=== PATIENT | female | born 1970 | race Two or more races ===

== ENCOUNTER 2021-02-05 16:39 | Emergency (ER) | payer OTHER, SELFPAY ==
[2021-02-05 17:06] VITALS: BP 116/74; BP 130/71; PULSE 106; PULSE 170; RESP 17; TEMP 36.8; O2SAT 96; O2SAT 97; BMI 49.0
--- NOTE | 2021-02-05 17:11 | PC.NURSE ---
patient a&ox3, denies pain/discomfort at this time, air sampling and monitoring sinus tach low 100s, vitals otherwise stable, will continue to monitor.
--- NOTE | 2021-02-05 17:28 | ED_ITS ---
HPI - Arrhythmia/Palpitations General Chief Complaint: Arrhythmia/Palpitations Stated Complaint: Tachycardia Time Seen by Provider: 02/05/21 17:27 Source: patient Mode of arrival: EMS Limitations: no limitations History of Present Illness HPI narrative: Patient with no prior cardiac history was driving from work fernanda und 13:00 noticed heart rate was beating fast went to the walk-in clinic with SVT was noticed, with heart rate of 169 beats per minute, EMT came and gave 6 mg of Adenocard now patient is back to normal heart rate in 100s sinus. Patient denies any chest pain no thyroid problem no history of recent increased caffeine intake MD complaint: rapid heart beat Onset (ago): minute(s) Duration: constant Severity: moderate Context: occurred during rest Related Data Home Medications Medication Instructions Recorded Confirmed cetirizine 10 mg tablet 10 mg PO DAILY 02/05/21 02/05/21 chlorthalidone 25 mg tablet 25 mg PO DAILY 02/05/21 02/05/21 fluticasone propionate 50 1 spray INTRANASAL BID 02/05/21 02/05/21 mcg/actuation nasal spray,suspension hydrocortisone 2.5 % topical TOPICAL 02/05/21 02/05/21 ointment ketotifen fumarate 0.025 % (0.035 drp OPHTHALMIC (EYE) 02/05/21 02/05/21 %) eye drops lisinopril 40 mg tablet 40 mg PO DAILY 02/05/21 02/05/21 omeprazole 20 mg capsule,delayed 20 mg PO DAILY 02/05/21 02/05/21 release Allergies Allergy/AdvReac Type Severity Reaction Status Date / Time No Known Allergies Allergy Verified 02/05/21 16:02 [No Known Allergies*] Review of Systems Review of Systems: Constitutional : No Weight loss, No Fever, No Chills ENT/Mouth : No sore throat, No Rhinorrhea Eyes: No Eye Pain, No Swelling Cardiovascular : No Chest Pain, ++ palpitations Respiratory : No Cough, No Sputum, no shortness of breath Gastrointestinal : no Nausea, No Vomiting, No Diarrhea, No abdominal Pain, no black stools Genitourinary : No Dysuria, No Urinary Frequency Musculoskeletal : No joint pain, No Myalgias, No Joint Swelling Skin : No Skin Lesions, No rash Neuro : No Weakness, No Numbness, No Dizziness, No Headache Psych : No Anxiety/Panic, No Depression Heme/Lymph: No Bruising, No Lymphadenopathy Endocrine : No Polyuria, No Polydipsia All other systems reviewed and are negative [facility] Past Medical History Medical History GERD (gastroesophageal reflux disease) HTN (hypertension) Social History Social History Alcohol intake: never Smoked in Last 30 Days: No Use of substances other than those prescribed or required for medical reasons: No Advance Directives: No Advance Directives Information Provided: Yes Physical Exam Vital Signs: Vital Signs: Last Vital Signs Temp 98.2 F 02/05/21 19:35 Pulse 91 02/05/21 19:35 Resp 18 02/05/21 19:35 BP 106/73 02/05/21 19:35 Pulse Ox 97 02/05/21 19:35 Body Mass Index 49.0 Appearance: Alert. Oriented X3. No acute distress. Eyes: Pupils equal, round and reactive to light. ENT: Pharynx normal. Neck: Normal inspection. Neck supple. CVS: Normal heart rate and rhythm. Pulses normal. Respiratory: No respiratory distress. Breath sounds normal. Abdomen: Soft and nontender. Bowel sounds are present, no mass palpable, no CVA tenderness Skin: Skin warm and dry. Normal skin color. Normal skin turgor. Extremities: No lower extremity edema. Neuro: Oriented X 3. No motor deficit. No sensory deficit. MDM - Arrhythmia/Palpitations MDM Narrative Medical decision making narrative: Above EKGs from walk-in clinic. During stay in the ER patient remained in sinus rhythm without any symptoms blood workup is stable will discharge patient home Lab Data Attestation: I reviewed the patient's lab results. Result diagrams: 02/05/21 17:59 02/05/21 17:59 Labs: Lab Results 02/05/21 02/05/21 02/05/21 Range/Units 17:59 17:59 17:59 WBC 6.1 (4.8-10.8) X10*3/uL RBC 4.78 (4.20-5.50) X10*6/uL Hgb 14.3 (12.0-16.0) g/dl Hct 42.1 (37-47) % MCV 88.1 (80-98) fL MCH 29.9 (27.0-33.0) pg MCHC 34.0 (31.0-35.0) g/dl RDW 12.2 (11.0-16.0) % Plt Count 219 (160-400) X10*3/uL MPV 9.5 (9.4-12.3) fL Immature Gran % (Auto) 0.2 (0.0-0.4) % Neut % (Auto) 59.1 (45-73) % Lymph % (Auto) 31.0 (20-40) % [place] % (Auto) 7.9 (2-11) % Eos % (Auto) 1.5 (0-4) % Baso % (Auto) 0.3 (0-2) % Lymph # (Auto) 1.9 (1.2-4.9) X10*3/uL [place] # (Auto) 0.5 (0.1-1.2) X10*3/uL Eos # (Auto) 0.1 (0.0-0.4) X10*3/uL Baso # (Auto) 0.0 (0.0-0.2) X10*3/uL Abs Immat Gran (auto) 0.01 (0.00-0.03) X10*3/uL Absolute Neuts (auto) 3.6 (2.0-8.3) X10*3/uL Absolute Nucleated RBC 0.000 (0.0-0.012) X10*3/uL Nucleated RBC % (auto) 0.0 (0.0-0.2) /100WBC Sodium 138 (135-145) mmol/L Potassium 3.7 (3.3-5.1) mmol/L Chloride 101 (96-108) mmol/L Carbon Dioxide 30 H (22-29) mmol/L Anion Gap 11 L (12-20) BUN 17 H (9-16) mg/dL Creatinine 0.96 (0.5-1.4) mg/dL Estim Creat Clear Calc 85.1 Estimated GFR > 60 Random Glucose 89 (60-115) mg/dL Calcium 9.1 (8.4-10.2) mg/dL Troponin I High Sens 14.6 (<3.5-17.0) ng/L TSH 0.93 (0.32-4.0) uIU/mL COVID-19 (TAVON) (Negative) COVID-19 Clin Com 02/05/21 Range/Units 19:32 WBC (4.8-10.8) X10*3/uL RBC (4.20-5.50) X10*6/uL Hgb (12.0-16.0) g/dl Hct (37-47) % MCV (80-98) fL MCH (27.0-33.0) pg MCHC (31.0-35.0) g/dl RDW (11.0-16.0) % Plt Count (160-400) X10*3/uL MPV (9.4-12.3) fL Immature Gran % (Auto) (0.0-0.4) % Neut % (Auto) (45-73) % Lymph % (Auto) (20-40) % [place] % (Auto) (2-11) % Eos % (Auto) (0-4) % Baso % (Auto) (0-2) % Lymph # (Auto) (1.2-4.9) X10*3/uL [place] # (Auto) (0.1-1.2) X10*3/uL Eos # (Auto) (0.0-0.4) X10*3/uL Baso # (Auto) (0.0-0.2) X10*3/uL Abs Immat Gran (auto) (0.00-0.03) X10*3/uL Absolute Neuts (auto) (2.0-8.3) X10*3/uL Absolute Nucleated RBC (0.0-0.012) X10*3/uL Nucleated RBC % (auto) (0.0-0.2) /100WBC Sodium (135-145) mmol/L Potassium (3.3-5.1) mmol/L Chloride (96-108) mmol/L Carbon Dioxide (22-29) mmol/L Anion Gap (12-20) BUN (9-16) mg/dL Creatinine (0.5-1.4) mg/dL Estim Creat Clear Calc Estimated GFR Random Glucose (60-115) mg/dL Calcium (8.4-10.2) mg/dL Troponin I High Sens (<3.5-17.0) ng/L TSH (0.32-4.0) uIU/mL COVID-19 (TAVON) Negative (Negative) COVID-19 Clin Com See Note ECG Data Attestation: I personally reviewed and interpreted this ECG as follows: Interpretation: Normal sinus rhythm heart rate 101 beats per minute normal intervals normal axis no acute ST T wave changes impression normal EKG Discharge Plan Discharge Clinical Impression: SVT (supraventricular tachycardia) Patient Disposition: Home, Self-Care Instructions: Supraventricular Tachycardia (ED) Additional Instructions: About caffeine intake.if this recurs Prescriptions: No Action fluticasone propionate 50 mcg/actuation spray,suspension 1 spray intranasal BID RF: 0 lisinopril 40 mg tablet 40 mg PO DAILY RF: 0 cetirizine 10 mg tablet 10 mg PO DAILY RF: 0 omeprazole 20 mg capsule,delayed release(DR/EC) 20 mg PO DAILY RF: 0 chlorthalidone 25 mg tablet 25 mg PO DAILY RF: 0 hydrocortisone 2.5 % ointment topical RF: 0 ketotifen fumarate 0.025 % (0.035 %) drops ophthalmic (eye) RF: 0 Referrals: Arturo Hayward MD [Physician] - 1 week Interventions: ED Discharge Assessment Last Done: 02/05/21 19:17 Discharge Date/Time: 02/05/21 19:52
--- NOTE | 2021-02-05 17:35 | ECG_ITS ---
Test Reason : HTN Blood Pressure : / mmHG Vent. Rate : 101 BPM Atrial Rate : 101 BPM P-R Int : 144 ms QRS Dur : 078 ms QT Int : 362 ms P-R-T Axes : 048 012 003 degrees QTc Int : 469 ms Sinus tachycardia Otherwise normal ECG When compared with ECG of 15-APR-2018 13:40, No significant change was found Referred By: Prasanna Rodríguez Electronically Signed By:NATALI XIAO MD
[2021-02-05 18:03] LABS: MANUAL DIFF FLAG NO
[2021-02-05 18:22] LABS: Basophils Percent Auto 0.3 % (0-2); Eosinophils Absolute Auto 0.1 X10*3/uL (0.0-0.4); Eosinophils Percent Auto 1.5 % (0-4); Hematocrit 42.1 % (37-47); Hemoglobin 14.3 g/dl (12.0-16.0); Imm Gran Abs Auto 0.01 X10*3/uL (0.00-0.03); Imm Gran Pct Auto 0.2 % (0.0-0.4); Lymphocytes Absolute Auto 1.9 X10*3/uL (1.2-4.9); Mean Corpuscular Hemoglobin 29.9 pg (27.0-33.0); Mean Corpuscular Volume 88.1 fL (80-98); Mean Platelet Volume 9.5 fL (9.4-12.3); Monocytes Absolute Auto 0.5 X10*3/uL (0.1-1.2); Monocytes Percent Auto 7.9 % (2-11); Neutrophils Absolute Auto 3.6 X10*3/uL (2.0-8.3); Neutrophils Percent Auto 59.1 % (45-73); Platelet Count 219 X10*3/uL (160-400); Red Blood Count 4.78 X10*6/uL (4.20-5.50); Red Cell Distribution Width 12.2 % (11.0-16.0); White Blood Count 6.1 X10*3/uL (4.8-10.8)
[2021-02-05 18:24] LABS: Anion Gap 11 (12-20); Blood Urea Nitrogen 17 mg/dL (9-16); Calcium 9.1 mg/dL (8.4-10.2); Carbon Dioxide 30 mmol/L (22-29); Chloride 101 mmol/L (96-108); Creatinine Clr Calc Pharmacy 85.1; Estimated Glomerular Filt Rate > 60; Glucose Random 89 mg/dL (60-115); Potassium 3.7 mmol/L (3.3-5.1); Sodium 138 mmol/L (135-145)
[2021-02-05 18:32] LABS: Troponin-I High Sensitivity 14.6 ng/L (<3.5-17.0)
[2021-02-05 18:46] LABS: Thyroid Stimulating Hormone 0.93 uIU/mL (0.32-4.0)
[2021-02-05 19:35] VITALS: BP 106/73; PULSE 91; RESP 18; TEMP 36.8; O2SAT 97
--- NOTE | 2021-02-05 19:51 | PC.NURSE ---
pt requested covid swab, provider notified and verbal order given to obtain, pt will discharge and results will be called, pt ok with this. covid swab obtained
[2021-02-05 19:59] LABS: COVID-19 Test Negative (Negative)
== END 2021-02-05 19:52 | disposition home or self-care (01) ==
PROVIDERS: Emergency Provider Internal Medicine; PCP Internal Medicine
DX: I47.1 Supraventricular tachycardia (principal); Z20.822 Contact with and (suspected) exposure to COVID-19; I10 Essential (primary) hypertension; K21.9 Gastro-esophageal reflux disease without esophagitis
CPT/HCPCS: 36415; 80048; 84443; 84484; 85025; 87635; 93005; 99283; 99285

== ENCOUNTER 2021-11-18 14:52 | Outpatient (REF) | payer OTHER, SELFPAY ==
[2021-11-18 15:51] LABS: Influenza A PCR NEGATIVE (Negative); Influenza B PCR NEGATIVE (Negative); Resp Syncy Virus RNA Qual PCR NEGATIVE (Negative); SARS COV2 PCR INHOUSE POSITIVE (Negative)
== END 2021-11-18 14:53 | disposition home or self-care (01) ==
LOC: HO.LNP 14:52
PROVIDERS: Visit Provider Physician Assistant
DX: R05.9 Cough, unspecified (principal); Z20.822 Contact with and (suspected) exposure to COVID-19
CPT/HCPCS: 0241U

== ENCOUNTER 2021-11-19 10:19 | Emergency (ER) | payer OTHER, SELFPAY ==
--- NOTE | 2021-11-19 10:32 | ED.HA ---
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 elicited complaint: headache Pertinent past history: migraines and hypertension Onset (ago): day(s) (3) Onset description: gradually Location: frontal Severity: moderate Quality & Timing: aching, throbbing and progressively worsening Exacerbating factors: none Relieving factors: nothing Context: occurred at rest Associated symptoms: none Treatments prior to arrival: acetaminophen Related Data Home Medications Medication Instructions Recorded Confirmed chlorthalidone 25 mg tablet 25 mg PO DAILY 02/05/21 11/18/21 fluticasone propionate 50 1 spray INTRANASAL BID 02/05/21 11/18/21 mcg/actuation nasal spray,suspension hydrocortisone 2.5 % topical TOPICAL 02/05/21 11/18/21 ointment ketotifen fumarate 0.025 % (0.035 drp OPHTHALMIC (EYE) 02/05/21 11/18/21 %) eye drops lisinopril 40 mg tablet 40 mg PO DAILY 02/05/21 11/18/21 omeprazole 20 mg capsule,delayed 20 mg PO DAILY 02/05/21 02/05/21 release Allergies Allergy/AdvReac Type Severity Reaction Status Date / Time No Known Allergies Allergy Verified 11/18/21 12:35 [No Known Allergies*] Review of Systems Review of Systems: Constitutional : No Fever, No Chills, No Fatigue ENT/Mouth : No sore throat, No Rhinorrhea Eyes: No Eye Pain, No Swelling, No Redness Cardiovascular : No Chest Pain, No SOB, No Dyspnea on Exertion Respiratory : No Cough, No Sputum Gastrointestinal : No Nausea, No Vomiting, No Diarrhea, No abdominal Pain Genitourinary : No Dysuria, No Urinary Frequency, No Hematuria, Musculoskeletal : No joint pain, No Myalgias, No Joint Swelling Skin : No Skin Lesions, No rash Neuro : No Weakness, No Numbness, No Dizziness, positive Headache Psych : No Anxiety/Panic, No Depression Heme/Lymph: No Bruising, No Bleeding,No Lymphadenopathy Endocrine : No Polyuria, No Polydipsia All other systems reviewed and are negative PMFSH Past Medical History Medical History GERD (gastroesophageal reflux disease) HTN (hypertension) Social History Social History Alcohol intake: never Patient Tobacco Use Status: Never used Tobacco Use of substances other than those prescribed or required for medical reasons: No Advance Directives: No Advance Directives Information Provided: Yes Patient : No Physical Exam Vital Signs: Vital Signs: Last Vital Signs Temp 98.4 F 11/19/21 10:34 Pulse 93 11/19/21 10:34 Resp 20 11/19/21 10:34 BP 144/86 H 11/19/21 10:34 Pulse Ox 94 11/19/21 10:34 BMI result Body Mass Index 44.1 Appearance: Alert. Oriented X3. No acute distress. Eyes: Pupils equal, round and reactive to light. ENT: Pharynx normal. no sinus ttp Neck: Normal inspection. Neck supple. no meningeal signs CVS: Normal heart rate and rhythm. Pulses normal. Respiratory: No respiratory distress. Breath sounds normal. Abdomen: Soft and nontender. Skin: Skin warm and dry. Normal skin color. Normal skin turgor. Extremities: No lower extremity edema. No calf ttp Neuro: Oriented X 3. No motor deficit. No sensory deficit. Course Course Course Narrative: low risk no resp complaints O2 normal can be DC home with precautions MDM - Headache MDM Narrative Medical decision making narrative: 51 yo female hx of HTN compliant with medications comes in with gradual onset headache no AC therapy, no neuro findings, no fevers - vaccinated x 2, exposed to sick individual - BP not that high, given gradual onset lack of fevers - normal neuro exam doubt COMPUTER TECHNOLOGY TRAINER infection or SAH suspect viral infection like COVID - IM toradol ordered. Lab Data Labs: Lab Results 11/19/21 Range/Units 10:38 COVID-19 (TAVON) Positive A (Negative) COVID-19 Clin Com See Note Discharge Plan Discharge Clinical Impression: COVID-19 Patient Disposition: Home, Self-Care Instructions: COVID-19 (Coronavirus Disease 2019) (ED) Additional Instructions: return to ED for any worsening symptoms or concerns monitor your breathing if you cannot walk to the bathroom because you are so short of breath see medical care Prescriptions: No Action fluticasone propionate 50 mcg/actuation spray,suspension 1 spray intranasal BID RF: 0 lisinopril 40 mg tablet 40 mg PO DAILY RF: 0 omeprazole 20 mg capsule,delayed release(DR/EC) 20 mg PO DAILY RF: 0 chlorthalidone 25 mg tablet 25 mg PO DAILY RF: 0 hydrocortisone 2.5 % ointment topical RF: 0 ketotifen fumarate 0.025 % (0.035 %) drops ophthalmic (eye) RF: 0 Stand Alone Forms: Work/School Release
[2021-11-19 10:34] VITALS: BP 144/86; PULSE 93; RESP 20; TEMP 36.9; O2SAT 94; BMI 44.1
[2021-11-19 10:50] LABS: COVID-19 Test Positive (Negative); IDNOW Serial# 9DD0AD1C
[2021-11-19 10:57] VITALS: BP 134/86; PULSE 91; O2SAT 96
[2021-11-19] MEDS: Ketorolac Tromethamine 60 MG/2 ML VIAL IM (11:07)
== END 2021-11-19 11:11 | disposition home or self-care (01) ==
PROVIDERS: Emergency Provider Emergency Medicine; PCP Internal Medicine
DX: U07.1 COVID-19 (principal); I10 Essential (primary) hypertension
CPT/HCPCS: 36415; 87635; 96372; 99284; J1885

== ENCOUNTER 2021-11-24 13:55 | Outpatient (REF) | payer OTHER, SELFPAY ==
[2021-11-24 15:06] LABS: Binax Internal Control QC Valid; Binax Now Covid-19 Ag Negative (Negative)
== END 2021-11-24 13:56 | disposition home or self-care (01) ==
LOC: HO.HMGCLDS 13:55
PROVIDERS: Visit Provider Internal Medicine
DX: Z20.822 Contact with and (suspected) exposure to COVID-19 (principal)
CPT/HCPCS: 36415; C9803

== ENCOUNTER 2022-11-06 00:45 | Emergency (ER) | payer OTHER, SELFPAY ==
--- NOTE | ~2022-11-06 | CT_ITS ---
EXAMINATION: CT HEAD WITHOUT CONTRAST CLINICAL INFORMATION: seizure vs syncope COMPARISON: 04/15/2018 TECHNIQUE: Contiguous axial imaging was performed from the skull base to vertex without intravenous administration of contrast. This CT examination was performed using dose optimization techniques as appropriate, variously including the following: *Automated exposure control *Adjustment of mA and/or kV according to patient size (this includes techniques or standardized protocols for targeted exams where dose is matched to indication/reason for exam; i.e. extremities or head) *Use of iterative reconstruction technique DLP: 812 mGy-cm FINDINGS: There is no evidence of acute intracranial hemorrhage or territorial infarction. No abnormal mass-effect or midline shift is seen. [place] to white matter differentiation is well preserved. No extra axial fluid collections. The ventricles are normal in size and configuration. There is no abnormal attenuation within the brain parenchyma. There is hyperpneumatization of the petrous portion of the temporal bones. Mastoid air cells are clear. There is mucosal thickening within the left maxillary sinus and ethmoid air cells as well as the left frontal ethmoidal recess. No air-fluid levels. No acute osseous abnormalities. Soft tissues are unremarkable. CT/CT head/brain wo IV con IMPRESSION: No acute intracranial pathology. Left maxillary and ethmoidal sinus mucosal disease.
[2022-11-06 01:02] VITALS: BP 127/78; PULSE 96; RESP 18; TEMP 36.1; O2SAT 95; BMI 49.1
[2022-11-06 01:32] LABS: MANUAL DIFF FLAG NO
[2022-11-06 01:34] LABS: Basophils Percent Auto 0.5 % (0-2); Eosinophils Absolute Auto 0.2 X10*3/uL (0.0-0.4); Eosinophils Percent Auto 3.3 % (0-4); Hematocrit 36.7 % (37.0-47.0); Hemoglobin 12.8 g/dl (12.0-16.0); Imm Gran Abs Auto 0.01 X10*3/uL (0.00-0.03); Imm Gran Pct Auto 0.2 % (0.0-0.4); Lymphocytes Absolute Auto 2.8 X10*3/uL (1.2-4.9); Lymphocytes Percent Auto 44.3 % (20-40); Mean Corpuscular HGB Conc 34.9 g/dl (31.0-35.0); Mean Corpuscular Hemoglobin 29.7 pg (27.0-33.0); Mean Corpuscular Volume 85.2 fL (80.0-98.0); Mean Platelet Volume 9.1 fL (9.4-12.3); Monocytes Absolute Auto 0.6 X10*3/uL (0.1-1.2); Monocytes Percent Auto 9.3 % (2-11); Neutrophils Absolute Auto 2.7 x10*3/uL (2.0-8.3); Neutrophils Percent Auto 42.4 % (45-73); Platelet Count 240 X10*3/uL (160-400); Red Blood Count 4.31 X10*6/uL (4.20-5.50); White Blood Count 6.3 X10*3/uL (4.8-10.8)
[2022-11-06 01:49] LABS: Anion Gap 17 (12-20); Blood Urea Nitrogen 19 mg/dL (9-16); Calcium 9.2 mg/dL (8.4-10.2); Carbon Dioxide 25 mmol/L (22-29); Chloride 102 mmol/L (96-108); Creatinine Clr Calc Pharmacy 77.6; Estimated Glomerular Filt Rate 56; Glucose Random 131 mg/dL (60-115); Potassium 3.7 mmol/L (3.3-5.1); Sodium 140 mmol/L (135-145)
[2022-11-06 02:09] LABS: Influenza A PCR NEGATIVE (Negative); Influenza B PCR NEGATIVE (Negative); Resp Syncy Virus RNA Qual PCR POSITIVE (Negative); SARS COV2 PCR INHOUSE NEGATIVE (Negative)
[2022-11-06 04:43] VITALS: BP 116/72; PULSE 90; RESP 16; TEMP 36.4; O2SAT 94
--- NOTE | 2022-11-06 06:44 | ED_ITS ---
HPI - General Adult General Chief complaint: General Medical Stated complaint: woke up after nap w/ confusion, stroke? Time Seen by Provider: 11/06/22 06:40 Source: patient Mode of arrival: ambulatory Limitations: no limitations History of Present Illness HPI narrative: While watching TV patient had shaking all over, this lasted 2 minutes, but patient woke up immediately and was back to normal. No urinary or fecal incontinence. Onset (ago): minute(s) Severity: mild Relieving factors: none Related Data Home Medications Medication Instructions Recorded Confirmed chlorthalidone 25 mg tablet 25 mg PO DAILY 02/05/21 11/18/21 fluticasone propionate 50 1 spray intranasal BID 02/05/21 11/18/21 mcg/actuation nasal spray,suspension hydrocortisone 2.5 % topical topical 02/05/21 11/18/21 ointment ketotifen fumarate 0.025 % (0.035 drp ophthalmic (eye) 02/05/21 11/18/21 %) eye drops lisinopril 40 mg tablet 40 mg PO DAILY 02/05/21 11/18/21 omeprazole 20 mg capsule,delayed 20 mg PO DAILY 02/05/21 02/05/21 release Allergies Allergy/AdvReac Type Severity Reaction Status Date / Time No Known Allergies Allergy Verified 11/18/21 12:35 [No Known Allergies*] Review of Systems Review of Systems: Yes all other systems are reviewed and are negative [facility] Past Medical History Medical History GERD (gastroesophageal reflux disease) HTN (hypertension) Social History Social History Alcohol intake: never Patient Tobacco Use Status: Never used Tobacco Smoked in Last 30 Days: No Use of substances other than those prescribed or required for medical reasons: No Advance Directives: No Advance Directives Information Provided: No Patient : No Physical Exam ED Vital Signs: Vital Signs - 24 hr 11/06/22 01:02 11/06/22 04:43 11/06/22 07:19 Temperature 97.0 F 97.6 F Pulse Rate 96 90 94 Respiratory Rate 18 16 20 Blood Pressure 127/78 116/72 115/77 Pulse Oximetry 95 94 97 Oxygen Delivery Method Room Air Room Air Room Air 11/06/22 08:43 Temperature 98.5 F Pulse Rate 89 Respiratory Rate 14 Blood Pressure 116/73 Pulse Oximetry 99 Oxygen Delivery Method Room Air BMI result Body Mass Index 49.1 Const Nutritional Appearance: average body habitus and obese Orientation/consciousness: oriented to person and patient oriented x3 Limitations: no limitations HENMT Head: Yes normal to inspection Ears: external ears normal General nose exam: Normal external nose present Mouth: Normal oral and palatal mucosa present and oropharynx normal Throat: Yes posterior oropharynx normal Eyes General: appearance normal, both eyes and all related structures Neck Neck: Yes normal visual inspection Chest Chest palpation & inspection: normal inspection of the chest Resp Auscultation: clear to auscultation bilaterally Cardio Jugular venous distension: no JVD Rate: regular rate Rhythm: regular rhythm Heart sounds: S1 normal heart sound present and S2 normal heart sound present GI Inspection: Yes normal to inspection Palpation (GI): Soft to palpation, nontender and No hepatosplenomegaly present Auscultation: normal bowel sounds General: Yes no CVA tenderness Back/Spine/Pelvis Back: no CVA tenderness Skin General skin exam: no rashes or lesions noted Neuro General: oriented to person and patient oriented x3 Cranial nerves: Yes CN's II-XII intact bilaterally Motor exam (neuro): 5/5 motor strength present throughout Extrem General: Yes normal to inspection Psych Appearance: grossly normal Course Reevaluation(s) Reevaluation #1: Patient had a momentary moment of LOC, unclear if that was syncope vs seizure. Patient is obese, question of narcolepsy. At this point she has been in the ED for hours with no further symptoms will dc home Time: 09:06 Medical Decision Making Lab Data Result Diagrams: 11/06/22 01:11/06/22:22 Labs: Lab Results 11/06/22 11/06/22 11/06/22 Range/Units 01: 01: 01:22 WBC 6.3 (4.8-10.8) X10*3/uL RBC 4.31 (4.20-5.50) X10*6/uL Hgb 12.8 (12.0-16.0) g/dl Hct 36.7 L (37.0-47.0) % MCV 85.2 (80.0-98.0) fL MCH 29.7 (27.0-33.0) pg MCHC 34.9 (31.0-35.0) g/dl RDW 12.0 (11.0-16.0) % Plt Count 240 (160-400) X10*3/uL MPV 9.1 L (9.4-12.3) fL Immature Gran % (Auto) 0.2 (0.0-0.4) % Neut % (Auto) 42.4 L (45-73) % Lymph % (Auto) 44.3 H (20-40) % [place] % (Auto) 9.3 (2-11) % Eos % (Auto) 3.3 (0-4) % Baso % (Auto) 0.5 (0-2) % Lymph # (Auto) 2.8 (1.2-4.9) X10*3/uL [place] # (Auto) 0.6 (0.1-1.2) X10*3/uL Eos # (Auto) 0.2 (0.0-0.4) X10*3/uL Baso # (Auto) 0.0 (0.0-0.2) X10*3/uL Abs Immat Gran (auto) 0.01 (0.00-0.03) X10*3/uL Absolute Neuts (auto) 2.7 (2.0-8.3) x10*3/uL Absolute Nucleated RBC 0.000 (0.0-0.012) X10*3/uL Nucleated RBC % (auto) 0.0 (0.0-0.2) /100WBC Sodium 140 (135-145) mmol/L Potassium 3.7 (3.3-5.1) mmol/L Chloride 102 (96-108) mmol/L Carbon Dioxide 25 (22-29) mmol/L Anion Gap 17 (12-20) BUN 19 H (9-16) mg/dL Creatinine 1.03 (0.5-1.4) mg/dL Estim Creat Clear Calc 77.6 Estimated GFR 56 Random Glucose 131 H (60-115) mg/dL Calcium 9.2 (8.4-10.2) mg/dL Troponin I High Sens (<3.5-17.0) ng/L Influenza Type A (PCR) NEGATIVE (Negative) Influenza Type B (PCR) NEGATIVE (Negative) RSV RNA Qual (PCR) POSITIVE A (Negative) SARS-CoV-2 RNA (RT-PCR) NEGATIVE (Negative) 11/06/22 Range/Units 07:49 WBC (4.8-10.8) X10*3/uL RBC (4.20-5.50) X10*6/uL Hgb (12.0-16.0) g/dl Hct (37.0-47.0) % MCV (80.0-98.0) fL MCH (27.0-33.0) pg MCHC (31.0-35.0) g/dl RDW (11.0-16.0) % Plt Count (160-400) X10*3/uL MPV (9.4-12.3) fL Immature Gran % (Auto) (0.0-0.4) % Neut % (Auto) (45-73) % Lymph % (Auto) (20-40) % [place] % (Auto) (2-11) % Eos % (Auto) (0-4) % Baso % (Auto) (0-2) % Lymph # (Auto) (1.2-4.9) X10*3/uL [place] # (Auto) (0.1-1.2) X10*3/uL Eos # (Auto) (0.0-0.4) X10*3/uL Baso # (Auto) (0.0-0.2) X10*3/uL Abs Immat Gran (auto) (0.00-0.03) X10*3/uL Absolute Neuts (auto) (2.0-8.3) x10*3/uL Absolute Nucleated RBC (0.0-0.012) X10*3/uL Nucleated RBC % (auto) (0.0-0.2) /100WBC Sodium (135-145) mmol/L Potassium (3.3-5.1) mmol/L Chloride (96-108) mmol/L Carbon Dioxide (22-29) mmol/L Anion Gap (12-20) BUN (9-16) mg/dL Creatinine (0.5-1.4) mg/dL Estim Creat Clear Calc Estimated GFR Random Glucose (60-115) mg/dL Calcium (8.4-10.2) mg/dL Troponin I High Sens < 3.5 (<3.5-17.0) ng/L Influenza Type A (PCR) (Negative) Influenza Type B (PCR) (Negative) RSV RNA Qual (PCR) (Negative) SARS-CoV-2 RNA (RT-PCR) (Negative) Independent Interpretation I performed an independent interpretation of an: EKG (my interpretation of EKG in normal sinus, no st or twave changes) Radiology Impression Discussion of test interpretation with radiology: I have reviewed the radiologist's reading. Radiologist Impression: FINDINGS: There is no evidence of acute intracranial hemorrhage or territorial infarction. No abnormal mass-effect or midline shift is seen. [place] to white matter differentiation is well preserved. No extra axial fluid collections. The ventricles are normal in size and configuration.? There is no abnormal attenuation within the brain parenchyma.? There is hyperpneumatization of the petrous portion of the temporal bones. Mastoid air cells are clear. There is mucosal thickening within the left maxillary sinus and ethmoid air cells as well as the left frontal ethmoidal recess. No air-fluid levels. No acute osseous abnormalities. Soft tissues are unremarkable. CT/CT head/brain wo IV con IMPRESSION: No acute intracranial pathology. ? Left maxillary and ethmoidal sinus mucosal disease. ? Dictated By: n Signed By: <Electronically signed by n in OV> 11/06/22 0752 Discharge Plan Discharge Clinical Impression: Episode of unresponsiveness Patient Disposition: Home, Self-Care Instructions: Syncope (ED), New-Onset Seizure in Adults (ED) Prescriptions: No Action fluticasone propionate 50 mcg/actuation spray,suspension 1 spray intranasal BID lisinopril 40 mg tablet 40 mg PO DAILY omeprazole 20 mg capsule,delayed release(DR/EC) 20 mg PO DAILY chlorthalidone 25 mg tablet 25 mg PO DAILY hydrocortisone 2.5 % ointment topical ketotifen fumarate 0.025 % (0.035 %) drops ophthalmic (eye) Referrals: Physician,Unknown J [Primary Care Provider] - 1 week
--- NOTE | 2022-11-06 07:13 | ECG_ITS ---
Test Reason : SYNCOPE Blood Pressure : / mmHG Vent. Rate : 089 BPM Atrial Rate : 089 BPM P-R Int : 142 ms QRS Dur : 066 ms QT Int : 400 ms P-R-T Axes : 039 019 017 degrees QTc Int : 486 ms Normal sinus rhythm Cannot rule out Anterior infarct , age undetermined Abnormal ECG When compared with ECG of 05-FEB-2021 17:28, No significant change was found Referred By: Jerry Tyson Electronically Signed By:REBA JANSEN
[2022-11-06 07:19] VITALS: BP 115/77; PULSE 94; RESP 20; O2SAT 97
--- NOTE | 2022-11-06 07:20 | PC.NURSE ---
pt is alert and oriented, skin appropriate for ethnicity, respirations even and unlabored, pt reports that she was watching tv and this very brief episode of shaking and appeared to confused that was witnessed by the pt's daughter, pt is currently back to baseline-all neuro intact. vs stable
[2022-11-06 08:19] LABS: Troponin-I High Sensitivity < 3.5 ng/L (<3.5-17.0)
[2022-11-06 08:43] VITALS: BP 116/73; PULSE 89; RESP 14; TEMP 36.9; O2SAT 99
== END 2022-11-06 10:10 | disposition home or self-care (01) ==
PROVIDERS: Emergency Provider Emergency Medicine
DX: R55 Syncope and collapse (principal); Z20.822 Contact with and (suspected) exposure to COVID-19; Z79.899 Other long term (current) drug therapy
CPT/HCPCS: 0241U; 36415; 70450; 80048; 84484; 85025; 93005; 99284

== ENCOUNTER 2022-11-28 11:58 | Outpatient (REF) | payer OTHER, SELFPAY ==
[2022-11-28 12:32] LABS: COVID-19 Test Positive (Negative); IDNOW Serial# 55D5AD1C
== END 2022-11-28 11:59 | disposition home or self-care (01) ==
LOC: HO.LAB 11:58
PROVIDERS: Visit Provider Internal Medicine
DX: Z20.822 Contact with and (suspected) exposure to COVID-19 (principal)
CPT/HCPCS: 87635; C9803

== ENCOUNTER 2022-12-05 09:30 | Outpatient (REF) | payer OTHER, SELFPAY ==
[2022-12-05 10:00] LABS: COVID-19 Test Negative (Negative); IDNOW Serial# BCCEAD1C
== END 2022-12-05 09:31 | disposition home or self-care (01) ==
LOC: HO.LAB 09:30
PROVIDERS: Visit Provider Internal Medicine
DX: Z20.822 Contact with and (suspected) exposure to COVID-19 (principal)
CPT/HCPCS: 87635; C9803